=== PATIENT | male | born 1955 | race Two or more races ===

== ENCOUNTER 2017-03-31 16:49 | Inpatient (IN) | payer MEDICARE, MEDICAID ==
[~2017-03-31] VITALS: Ht 167.6 cm; Wt 101.0 kg
[2017-03-31 17:48] VITALS: BP 117/72
[2017-03-31] MEDS ORDERED: SODIUM CHLORIDE 0.9% 1,000 ML IV SCH (18:17)
[2017-03-31] MEDS ORDERED: TEMAZEPAM 15 MG CAPSULE PO PRN (18:30)
[2017-03-31] MEDS ORDERED: ONDANSETRON 2MG/ML, 2ML IVPush PRN (18:30)
[2017-03-31] MEDS ORDERED: PLEASE ENTER ALLERGIES MC SCH ×2 (19:00)
[2017-03-31] MEDS: PLEASE ENTER ALLERGIES MC SCH ×2 (19:30)
[2017-03-31] MEDS ORDERED: POLYETHYLENE GLYCOL 17 GM PACKET PO PRN (19:30)
[2017-03-31 19:45] VITALS: BP 127/84
[2017-03-31] MEDS: NICOTINE 14MG/24 HR PATCH.TD24 TD SCH (20:00)
[2017-03-31] MEDS ORDERED: ALBUTEROL SULFATE 2.5 MG/3 ML NPPB PRN (20:00)
[2017-03-31] MEDS ORDERED: METH40TA3 PO (20:04)
[2017-03-31] MEDS ORDERED: LOSA1TAB17 PO (20:04)
[2017-03-31] MEDS ORDERED: CLON2TAB PO (20:04)
[2017-03-31] MEDS ORDERED: OXYcodone IR 5MG TABLET PO PRN (20:30)
[2017-03-31] MEDS: METHADONE 40 MG TABLET.SOL PO SCH (21:41)
[2017-04-01] MEDS: GUAIFENESIN ER 600 MG TABLET PO SCH ×3 (00:45→20:19)
[2017-04-01] MEDS: PIPERACILLIN/TAZO/PMX 3.375GM 50 ML IV SCH ×3 (00:45→15:47)
[2017-04-01 02:13] VITALS: BP 112/71
[2017-04-01] MEDS: PLEASE ENTER ALLERGIES MC SCH ×2 (03:30)
[2017-04-01 06:22] LABS: HEMATOCRIT 33.7 % (39.2-51.8); HEMOGLOBIN 11.2 g/dL (13.7-18.0); WHITE BLOOD COUNT 6.2 x10^3/uL (3.4-10)
[2017-04-01 06:42] LABS: ASPARTATE AMINO TRANSFERASE 63 U/L (15-37); BLOOD UREA NITROGEN 12 mg/dL (7-18)
[2017-04-01] MEDS: METHADONE 40 MG TABLET.SOL PO SCH ×2 (09:21→20:19)
[2017-04-01 09:29] VITALS: BP 136/87
[2017-04-01] MEDS ORDERED: MIDAZOLAM 1 MG/ML, 5ML ONE (11:20)
[2017-04-01] MEDS ORDERED: FENTANYL PF 100 MCG/2ML ONE (11:20)
[2017-04-01] MEDS: THIAMINE 100MG TABLET PO SCH (14:30)
[2017-04-01] MEDS ORDERED: MAGNESIUM SULFATE PMX 4GM/100M 100 ML IV ONE (14:30)
[2017-04-01] MEDS: FOLIC ACID 1 MG TABLET PO SCH (14:30)
[2017-04-01] MEDS ORDERED: BUPIVACAINE/PF 0.5% ONE (16:02)
[2017-04-01] MEDS ORDERED: EPINEPHRINE 1 MG/ML, 1ML ONE (16:02)
[2017-04-01] MEDS ORDERED: MIDAZOLAM 1 MG/ML, 2ML ONE (16:21)
[2017-04-01] MEDS ORDERED: FENTANYL PF 250 MCG/5ML ONE ×2 (16:21→18:50)
[2017-04-01] MEDS ORDERED: GLYCOPYRROLATE 0.2MG/1ML, 5ML ONE (16:24)
[2017-04-01] MEDS ORDERED: NEOSTIGMINE 1 MG/ML, 10ML ONE (16:24)
[2017-04-01] MEDS ORDERED: ROCURONIUM 10MG/ML,5ML ONE (16:24)
[2017-04-01] MEDS ORDERED: PROPOFOL 10 MG/ML, 20ML ONE (16:24)
[2017-04-01] MEDS ORDERED: BUPIVACAINE/PF 0.5% INFIL ONE (16:43)
[2017-04-01] MEDS ORDERED: EPINEPHRINE 1 MG/ML, 1ML INFIL ONE (16:43)
[2017-04-01] MEDS ORDERED: ACETAMINOPHEN 325 MG TABLET PO PRN (17:00)
[2017-04-01] MEDS ORDERED: HYDROmorphone 1 MG/ML, 1ML IV PRN ×2 (17:00→19:30)
[2017-04-01] MEDS ORDERED: OXYcodone 5 MG/5 ML ORAL.SOL UDC PO PRN (17:00)
[2017-04-01] MEDS ORDERED: MEPERIDINE/PF 25MG/0.5ML IVPush PRN (17:00)
[2017-04-01] MEDS ORDERED: FENTANYL PF 100 MCG/2ML IV PRN (17:00)
[2017-04-01] MEDS ORDERED: ONDANSETRON 2MG/ML, 2ML IVPush PRN (17:00)
[2017-04-01] MEDS ORDERED: METOPROLOL 1 MG/ML, 5ML IV PRN (17:00)
[2017-04-01] MEDS ORDERED: ALBUTEROL/IPRATROPIUM 2.5MG/0.5MG, 3 ML ONE (17:27)
[2017-04-01] MEDS ORDERED: SUGAMMADEX 200 MG/2 ML IVPush ONE (17:31)
[2017-04-01] MEDS ORDERED: OXYcodone 5 MG/5 ML ORAL.SOL UDC ONE (18:02)
[2017-04-01] MEDS ORDERED: ACETAMINOPHEN 650 MG/20.3 ML UDC ONE (18:02)
[2017-04-01] MEDS: NICOTINE 14MG/24 HR PATCH.TD24 TD SCH (18:30)
[2017-04-01] MEDS ORDERED: morphine SULFATE 10 MG/ML, 1ML IV PRN (19:30)
[2017-04-01] MEDS ORDERED: HYDROcodone/APAP 5/325 TABLET PO PRN (19:30)
[2017-04-01] MEDS: SODIUM CHLORIDE 0.9% 1,000 ML IV SCH (20:31)
[2017-04-01] MEDS: CEFOTETAN PMX 1GM/50ML 50 ML IVPB SCH (20:31)
[2017-04-01] MEDS: OXYcodone/APAP 5/325MG TABLET PO PRN (21:42)
[2017-04-02 01:25] VITALS: BP 112/77
[2017-04-02] MEDS: OXYcodone/APAP 5/325MG TABLET PO PRN ×4 (01:46→20:07)
[2017-04-02 02:00] VITALS: BP 115/77
[2017-04-02 05:26] LABS: HEMATOCRIT 34.9 % (39.2-51.8); HEMOGLOBIN 11.6 g/dL (13.7-18.0); WHITE BLOOD COUNT 8.4 x10^3/uL (3.4-10)
[2017-04-02 05:29] LABS: BLOOD UREA NITROGEN 11 mg/dL (7-18)
[2017-04-02 05:55] LABS: ASPARTATE AMINO TRANSFERASE 63 U/L (15-37)
[2017-04-02 07:48] VITALS: BP 100/67
[2017-04-02] MEDS: CEFOTETAN PMX 1GM/50ML 50 ML IVPB SCH (08:28)
[2017-04-02] MEDS: ENOXAPARIN 40 MG/0.4 ML SQ SCH (09:00)
[2017-04-02] MEDS: SODIUM CHLORIDE 0.9% 1,000 ML IV SCH ×2 (09:20→22:59)
[2017-04-02] MEDS: THIAMINE 100MG TABLET PO SCH (10:48)
[2017-04-02] MEDS: GUAIFENESIN ER 600 MG TABLET PO SCH ×2 (10:48→20:07)
[2017-04-02] MEDS: FOLIC ACID 1 MG TABLET PO SCH (10:48)
[2017-04-02] MEDS: METHADONE 40 MG TABLET.SOL PO SCH ×2 (10:48→22:57)
[2017-04-02] MEDS: PIPERACILLIN/TAZO/PMX 3.375GM 50 ML IV SCH ×2 (10:51→18:25)
[2017-04-02] MEDS: NICOTINE 14MG/24 HR PATCH.TD24 TD SCH (18:25)
[2017-04-02 20:59] VITALS: BP 102/60
[2017-04-03] MEDS: PIPERACILLIN/TAZO/PMX 3.375GM 50 ML IV SCH (02:24)
[2017-04-03 03:08] VITALS: BP 106/88
[2017-04-03 08:49] LABS: HEMATOCRIT 36.3 % (39.2-51.8); HEMOGLOBIN 12.1 g/dL (13.7-18.0); WHITE BLOOD COUNT 9.1 x10^3/uL (3.4-10)
[2017-04-03] MEDS: FOLIC ACID 1 MG TABLET PO SCH (08:54)
[2017-04-03] MEDS: THIAMINE 100MG TABLET PO SCH (08:55)
[2017-04-03] MEDS: GUAIFENESIN ER 600 MG TABLET PO SCH ×2 (08:55→21:42)
[2017-04-03] MEDS: METHADONE 40 MG TABLET.SOL PO SCH ×2 (08:55→21:42)
[2017-04-03] MEDS: ENOXAPARIN 40 MG/0.4 ML SQ SCH (08:56)
[2017-04-03 09:03] LABS: ASPARTATE AMINO TRANSFERASE 31 U/L (15-37); BLOOD UREA NITROGEN 11 mg/dL (7-18)
[2017-04-03 09:20] VITALS: BP 111/73
[2017-04-03] MEDS: MULTIVITAMIN 1 TABLET PO SCH (10:30)
[2017-04-03] MEDS: CEFTRIAXONE PMX 1GM/50ML 50 ML IV SCH (11:49)
[2017-04-03] MEDS ORDERED: LIDOCAINE 1%, 2ML ONE (13:12)
[2017-04-03] MEDS: OXYcodone/APAP 5/325MG TABLET PO PRN (15:58)
[2017-04-03] MEDS: NICOTINE 14MG/24 HR PATCH.TD24 TD SCH (18:30)
[2017-04-03 19:15] VITALS: BP 115/74
[2017-04-03] MEDS: D5%-0.9% NACL 1,000 ML IV SCH (19:24)
[2017-04-04 01:14] VITALS: BP 130/78
[2017-04-04 05:46] LABS: BLOOD UREA NITROGEN 11 mg/dL (7-18)
[2017-04-04 05:49] LABS: ASPARTATE AMINO TRANSFERASE 21 U/L (15-37); HEMATOCRIT 34.3 % (39.2-51.8); HEMOGLOBIN 11.3 g/dL (13.7-18.0); WHITE BLOOD COUNT 7.4 x10^3/uL (3.4-10)
[2017-04-04] MEDS: ENOXAPARIN 40 MG/0.4 ML SQ SCH (07:07)
[2017-04-04] MEDS: MULTIVITAMIN 1 TABLET PO SCH (07:08)
[2017-04-04] MEDS: THIAMINE 100MG TABLET PO SCH (07:08)
[2017-04-04] MEDS: FOLIC ACID 1 MG TABLET PO SCH (07:10)
[2017-04-04 08:06] VITALS: BP 127/78
[2017-04-04] MEDS: METHADONE 40 MG TABLET.SOL PO SCH ×2 (09:05→20:50)
[2017-04-04] MEDS: GUAIFENESIN ER 600 MG TABLET PO SCH ×2 (09:06→20:50)
[2017-04-04] MEDS ORDERED: OMNIPAQUE 350 MG/ML, 100ML BOTTLE ONE (09:59)
[2017-04-04] MEDS: CEFTRIAXONE PMX 1GM/50ML 50 ML IV SCH (12:05)
[2017-04-04] MEDS: D5%-0.9% NACL 1,000 ML IV SCH (12:07)
[2017-04-04 12:24] VITALS: BP 110/72
[2017-04-04] MEDS ORDERED: FENTANYL PF 100 MCG/2ML ONE (15:11)
[2017-04-04] MEDS ORDERED: LIDOCAINE GEL 2%, 5ML ONE (15:11)
[2017-04-04] MEDS ORDERED: MIDAZOLAM 1 MG/ML, 2ML ONE (15:11)
[2017-04-04] MEDS ORDERED: ONDANSETRON 2MG/ML, 2ML ONE (15:24)
[2017-04-04] MEDS ORDERED: PROPOFOL 10 MG/ML, 20ML ONE (15:24)
[2017-04-04] MEDS ORDERED: DEXAMETHASONE 4 MG/ML, 1ML ONE (15:24)
[2017-04-04] MEDS ORDERED: SUCCINYLCHOLINE 20 MG/ML, 10ML ONE (15:24)
[2017-04-04] MEDS ORDERED: LABETALOL 5MG/ML, 20ML IV PRN (16:00)
[2017-04-04] MEDS ORDERED: hydrALAzine 20 MG/ML, 1ML IV PRN (16:00)
[2017-04-04] MEDS ORDERED: MIDAZOLAM 1 MG/ML, 2ML IV PRN (16:00)
[2017-04-04] MEDS ORDERED: OMNIPAQUE 350 MG/ML, 50 ML BOTTLE INJ ONE (16:00)
[2017-04-04] MEDS ORDERED: LORazepam 2 MG/ML, 1ML IVPush PRN (16:00)
[2017-04-04] MEDS ORDERED: ONDANSETRON 2MG/ML, 2ML IVPush PRN (16:00)
[2017-04-04] MEDS ORDERED: FENTANYL PF 100 MCG/2ML IV PRN (16:00)
[2017-04-04] MEDS ORDERED: DIAZEPAM 5 MG/ML, 2ML IVPush PRN (16:00)
[2017-04-04] MEDS ORDERED: MEPERIDINE/PF 25MG/0.5ML IVPush PRN (16:00)
[2017-04-04] MEDS ORDERED: ALBUTEROL/IPRATROPIUM 2.5MG/0.5MG, 3 ML NPPB PRN (16:00)
[2017-04-04] MEDS ORDERED: OXYcodone 5 MG/5 ML ORAL.SOL UDC PO PRN (16:00)
[2017-04-04] MEDS ORDERED: HYDROmorphone 1 MG/ML, 1ML IV PRN (16:00)
[2017-04-04] MEDS ORDERED: PROMETHAZINE 25 MG/ML, 1ML IV PRN (16:00)
[2017-04-04] MEDS ORDERED: INDOMETHACIN 50 MG SUPP.RECT ONE (16:34)
[2017-04-04] MEDS ORDERED: INDOMETHACIN 50 MG SUPP.RECT PR ONE (16:45)
[2017-04-04] MEDS: NICOTINE 14MG/24 HR PATCH.TD24 TD SCH (17:46)
[2017-04-04 20:15] VITALS: BP 112/50
[2017-04-04] MEDS: OXYcodone/APAP 5/325MG TABLET PO PRN (22:47)
[2017-04-04 23:49] VITALS: BP 107/69
[2017-04-05] MEDS: D5%-0.9% NACL 1,000 ML IV SCH ×2 (02:52→16:00)
[2017-04-05 04:10] VITALS: BP 105/68
[2017-04-05] MEDS: OXYcodone/APAP 5/325MG TABLET PO PRN ×2 (04:54→22:11)
[2017-04-05 06:03] LABS: HEMATOCRIT 32.8 % (39.2-51.8); HEMOGLOBIN 10.9 g/dL (13.7-18.0); WHITE BLOOD COUNT 5.5 x10^3/uL (3.4-10)
[2017-04-05 06:21] LABS: ASPARTATE AMINO TRANSFERASE 22 U/L (15-37); BLOOD UREA NITROGEN 12 mg/dL (7-18)
[2017-04-05 06:53] VITALS: BP 100/64
[2017-04-05] MEDS: MULTIVITAMIN 1 TABLET PO SCH (10:49)
[2017-04-05] MEDS: GUAIFENESIN ER 600 MG TABLET PO SCH ×2 (10:49→22:03)
[2017-04-05] MEDS: THIAMINE 100MG TABLET PO SCH (10:49)
[2017-04-05] MEDS: METHADONE 40 MG TABLET.SOL PO SCH ×2 (10:50→21:00)
[2017-04-05] MEDS: FOLIC ACID 1 MG TABLET PO SCH (10:50)
[2017-04-05] MEDS: CEFTRIAXONE PMX 1GM/50ML 50 ML IV SCH (11:29)
[2017-04-05 12:25] VITALS: BP 98/64
[2017-04-05] MEDS: ENOXAPARIN 40 MG/0.4 ML SQ SCH (17:00)
[2017-04-05] MEDS: NICOTINE 14MG/24 HR PATCH.TD24 TD SCH (18:30)
[2017-04-05 19:12] VITALS: BP 109/67
[2017-04-05] MEDS ORDERED: MAGNESIUM SULFATE PMX 4GM/100M 100 ML IV ONE (19:30)
[2017-04-06 01:19] VITALS: BP 94/56
[2017-04-06 06:02] LABS: BLOOD UREA NITROGEN 11 mg/dL (7-18); HEMATOCRIT 32.1 % (39.2-51.8); HEMOGLOBIN 10.8 g/dL (13.7-18.0); WHITE BLOOD COUNT 5.9 x10^3/uL (3.4-10)
[2017-04-06 06:06] LABS: ASPARTATE AMINO TRANSFERASE 26 U/L (15-37)
[2017-04-06 07:45] VITALS: BP 115/76
[2017-04-06] MEDS ORDERED: FLU VACC QS2017-18 (36MOS+) UP/PF 0.5 ML IM-VACC ONE (08:00)
[2017-04-06] MEDS: METHADONE 40 MG TABLET.SOL PO SCH (08:24)
[2017-04-06] MEDS: THIAMINE 100MG TABLET PO SCH (08:28)
[2017-04-06] MEDS: MULTIVITAMIN 1 TABLET PO SCH (08:28)
[2017-04-06] MEDS: GUAIFENESIN ER 600 MG TABLET PO SCH (08:28)
[2017-04-06] MEDS: FOLIC ACID 1 MG TABLET PO SCH (08:28)
[2017-04-06 13:40] VITALS: BP 111/70
[2017-04-06 14:43] VITALS: BP 106/64
[2017-04-06] MEDS ORDERED: LACT1CAP24 PO (14:55)
[2017-04-06] MEDS ORDERED: AMOX1TAB64 PO (14:55)
[2017-04-06] MEDS ORDERED: AMOXICILLIN/CLAV 875-125MG TABLET PO SCH (21:00)
== END 2017-04-06 15:50 | disposition home or self-care (01) | DRG 417 ==
LOC: 4NOR 16:49
PROVIDERS: ADMIT Hospitalist; ATTEND Internal Medicine
PROC: 0FT44ZZ Resection of Gallbladder, Percutaneous Endoscopic Approach (ICD-10-PCS; principal; 2017-04-01 14:00)
PROC: BF111ZZ Fluoroscopy of Biliary and Pancreatic Ducts using Low Osmolar Contrast (ICD-10-PCS; 2017-04-04)
PROC: 0FC98ZZ Extirpation of Matter from Common Bile Duct, Via Natural or Artificial Opening Endoscopic (ICD-10-PCS; 2017-04-04)
PROC: 0F798DZ Dilation of Common Bile Duct with Intraluminal Device, Via Natural or Artificial Opening Endoscopic (ICD-10-PCS; 2017-04-04)
DX: K80.62 Calculus of gallbladder and bile duct with acute cholecystitis without obstruction (principal); J96.20 Acute and chronic respiratory failure, unspecified whether with hypoxia or hypercapnia; E43 Unspecified severe protein-calorie malnutrition; F11.20 Opioid dependence, uncomplicated; J44.0 Chronic obstructive pulmonary disease with (acute) lower respiratory infection; N39.0 Urinary tract infection, site not specified; B96.20 Unspecified Escherichia coli [E. coli] as the cause of diseases classified elsewhere; B96.89 Other specified bacterial agents as the cause of diseases classified elsewhere; D53.9 Nutritional anemia, unspecified; E16.2 Hypoglycemia, unspecified; F10.20 Alcohol dependence, uncomplicated; F17.210 Nicotine dependence, cigarettes, uncomplicated; G40.909 Epilepsy, unspecified, not intractable, without status epilepticus; G89.29 Other chronic pain; I10 Essential (primary) hypertension; J20.9 Acute bronchitis, unspecified; Z68.35 Body mass index [BMI] 35.0-35.9, adult; K76.0 Fatty (change of) liver, not elsewhere classified; Q68.8 Other specified congenital musculoskeletal deformities; Z82.5 Family history of asthma and other chronic lower respiratory diseases; Z99.3 Dependence on wheelchair; Z99.81 Dependence on supplemental oxygen
CPT/HCPCS: 36415; 71275; 74181; 76001; 80053; 82607; 82746; 83735; 84100; 84443; 85025; 87040; 88304; 90686; 93005; 94640; 99156; 99157; J0171; J0696; J1100; J2250; J2405; J2543; J2704; J2710; J3010; J3490; J7042; Q9967; C1876; C1894; C2625; J0330; J2270; J3475; J7030; S0074